=== PATIENT | female | born 1960 | race Caucasian/White ===

== ENCOUNTER → 2019-01-17 | Outpatient (CLI) | payer OTHER ==
[2019-01-17 10:51] LABS: HEMATOCRIT 42.7 % (36.0-47.0); HEMOGLOBIN 14.8 g/dL (12.0-15.5); MEAN CORPUSCULAR HEMOGLOBIN 30.9 pg (27.0-33.4); MEAN CORPUSCULAR HGB CONC 34.6 g/dL (32.0-36.0); MEAN CORPUSCULAR VOLUME 89 fl (80-97); PLATELET COUNT 298 10^3/uL (150-450); RED BLOOD COUNT 4.78 10^6/uL (3.72-5.28); RED CELL DISTRIBUTION WIDTH 12.5 % (11.5-14.0); WHITE BLOOD COUNT 6.9 10^3/uL (4.0-10.5)
== END ==
LOC: OD 09:55
PROVIDERS: ATTEND Nurse Practitioner Acute Care
DX: R53.83 Other fatigue (principal)
CPT/HCPCS: 36415; 82607; 85027

== ENCOUNTER 2020-06-08 08:02 | Emergency (ER) | payer OTHER ==
[2020-06-08] MEDS ORDERED: DIPHENHYDRAMINE HCL 50 MG/ML VIAL ONE (08:08)
[2020-06-08] MEDS ORDERED: FAMOTIDINE INJ/PF 20 MG/2 ML SDV IV ONE ×2 (08:08→08:12)
[2020-06-08] MEDS ORDERED: EPINEPHRINE INJ/PF 1 MG/1 ML AMPULE ONE (08:08)
[2020-06-08] MEDS ORDERED: METHYLPREDNISOLONE INJ 125 MG/2 ML SDV ONE (08:09)
[2020-06-08] MEDS ORDERED: METHYLPREDNISOLONE INJ 125 MG/2 ML SDV IV ONE (08:11)
[2020-06-08] MEDS ORDERED: DIPHENHYDRAMINE HCL 50 MG/ML VIAL IV ONE (08:12)
--- NOTE | 2020-06-08 08:17 | ER Document Report ---
ED General - General Chief Complaint: Swelling of Tongue Stated Complaint: SWOLLEN TOUNGE Time Seen by Provider: 06/08/20 08:05 Primary Care Provider: MARYAM CRUZ NP [ALLIED HEALTH PROFESSIONAL] - Follow up as needed Notes: 59-year-old female presents to the emergency department with a swollen tongue. The patient stated her doctor started her on a new inhaler and a new medicine for diarrhea. This was Tuesday. The patient took the inhaler several times on Tuesday and yesterday but had no issues she took 1 pill of the antidiarrheal medicine and has not had any bowel movement since but this morning her tongue has been swollen. States she could not swallow it first and that she felt as if her tongue was blocking her mouth preventing her from swallowing. She presented here via private vehicle. She denies any chest pain denies shortness of breath. States she could not swallow but it is starting to improve slowly and she is able to swallow she denies any drooling. Denies any shellfish or any atypical diet in the last several days. The only thing new is the medications are prescribed on Tuesday and she took her inhaler Tuesday and Tuesday but only took the antidiarrheal medicine yesterday. She denies any antihypertensive use. No GILBERTO inhibitor's. Denies any insect bites or bee stings. TRAVEL OUTSIDE OF THE [place] IN LAST 30 DAYS: No - Related Data Allergies/Adverse Reactions: No Known Allergies Allergy (Unverified 06/08/20 08:55) Past Medical History - Social History Smoking Status: Unknown if Ever Smoked Family History: Reviewed & Not Pertinent Review of Systems - Review of Systems Constitutional: denies: Chills, Fever EENT: Difficulty swallowing, Throat swelling Cardiovascular: denies: Chest pain, Dyspnea, Edema Respiratory: denies: Cough, Hurts to breathe Gastrointestinal: No symptoms reported Genitourinary: No symptoms reported Female Genitourinary: No symptoms reported Musculoskeletal: No symptoms reported Skin: No symptoms reported Hematologic/Lymphatic: No symptoms reported Neurological/Psychological: No symptoms reported -: Yes All other systems reviewed and negative Physical Exam - Vital signs Vitals: Temp 98.3 F 06/08/20 08:02 - Notes Notes: GENERAL_APPEARANCE: well_nourished, alert, cooperative VITALS: reviewed, see vital signs table. HEAD: no_swelling\tenderness on the head. EYES: PERRL, EOMI, conjunctiva_clear. NOSE: no_nasal_discharge. MOUTH: (-)decreased moisture. Tongue is swollen more so on the left than the right. Am able to see just the top of the uvula. No drooling no stridor noted THROAT: no_tonsilar_inflammation, no_airway_obstruction. no_lymphadenopathy NECK: supple, no_neck_tenderness, (-)thyromegaly. BACK: no_back_tenderness. CHEST_WALL: no_chest_tenderness. LUNGS: no_wheezing, no_rales, no_rhonchi, (-)accessory muscle use, good air exchange bilateral. EXTREMITIES: good pulses in all_extremities, no_swelling\tenderness in the extremities, no_edema. SKIN: warm, dry, good_color, no_rash. MENTAL_STATUS: speech_clear, oriented_X_3, normal_affect, responds_appropriately to questions. Course - Re-evaluation Re-evalutation: 06/08/20 08:15 59-year-old female presents with angioedema. The patient's tongue is swollen. Lips are not swollen. There is no drooling or stridor I am able to see part of the uvula. We will give her the usual antihistamines and steroids. Due to her age at this time I do not think epi is indicated. We are watching her closely if she does not improve or gets worse we will hold subcu epi. Otherwise I think we are doing well and should progress accordingly. 06/08/20 11:27 Tongue is still swollen but looks considerably better. Will place patient on steroids and antihistamines the next couple days. If worse return to the ER otherwise the swelling should continually decrease. Patient is doing well here again on reevaluation I can see more the uvula no drooling no stridor swelling is much improved. Breathing well. 06/08/20 11:29 I advised her to stop the day antidiarrheal medicine she was started on and took yesterday. - Vital Signs Vital signs: Temp Pulse Resp BP Pulse Ox 98.3 F 20 138/69 H 92 06/08/20 08:02 06/08/20 11:01 06/08/20 11:01 06/08/20 11:01 Discharge - Discharge Clinical Impression: Angioedema Qualifiers: Encounter type: initial encounter Qualified Code(s): T78.3XXA - Angioneurotic edema, initial encounter Condition: Good Disposition: HOME, SELF-CARE Instructions: Angioedema ([facility]) Additional Instructions: Stop the antidiarrheal medicine you took yesterday Prescriptions: Methylprednisolone [Medrol 4 Mg Tablet] 4 mg PO DAILY #1 packet Hydroxyzine Pamoate [Vistaril 50 mg Capsule] 50 mg PO DAILY #30 capsule Referrals: MARYAM CRUZ NP [ALLIED HEALTH PROFESSIONAL] - Follow up as needed
[2020-06-08 11:54] VITALS: BP 126/66
== END 2020-06-08 12:02 | disposition home or self-care (01) ==
LOC: ER 08:02
DX: K14.9 Disease of tongue, unspecified (principal); T78.3XXA Angioneurotic edema, initial encounter; X58.XXXA Exposure to other specified factors, initial encounter
CPT/HCPCS: 99284; 96374; 96375; J1200; J2930; S0028

== ENCOUNTER 2020-06-11 07:23 | Emergency (ER) | payer OTHER ==
--- NOTE | 2020-06-11 08:50 | ER Document Report ---
ED GI/ - General Chief Complaint: Constipation Stated Complaint: URINATION PROBLEMS, ABDOMINAL PAIN Time Seen by Provider: 06/11/20 08:22 Mode of Arrival: Ambulatory Information source: Patient Notes: 59-year-old female patient presenting to the emergency department with concern for abdominal pain and lack of energy. Patient reports pain ongoing for about the last week. She reports associated passage of very small soft stools. Patient is concerned she may have constipation or bowel obstruction. Patient denies any history of abdominal surgeries, has never had a bowel obstruction in the past. She does report that she went to [facility] urgent care for her abdominal pain and diarrhea and she reports they diagnosed her with COPD and told her to take Imodium. She states this is the worst pain she has ever felt. She reports associated nausea but denies any vomiting or urinary symptoms. The pain is diffuse, spreads across her entire abdomen and states that significantly worsened this morning. She is passing gas. TRAVEL OUTSIDE OF THE [place] IN LAST 30 DAYS: No - Related Data Allergies/Adverse Reactions: No Known Allergies Allergy (Unverified 06/08/20 08:55) Past Medical History - General Information source: Patient - Social History Smoking Status: Current Every Day Smoker Family History: Reviewed & Not Pertinent - Past Medical History Cardiac Medical History: Reports: Hx Hypertension Psychiatric Medical History: Reports: Hx Depression Surgical Hx: Negative - Immunizations Immunizations up to date: No Review of Systems - Review of Systems Gastrointestinal: Abdominal pain, Nausea -: Yes All other systems reviewed and negative Physical Exam - Vital signs Vitals: Temp Pulse Resp BP Pulse Ox 97.4 F 88 16 142/66 H 95 06/11/20 07:29 06/11/20 07:29 06/11/20 07:29 06/11/20 07:29 06/11/20 07:29 - Notes Notes: PHYSICAL EXAMINATION: GENERAL: Morbidly obese, appears to be in mild to moderate distress. HEAD: Atraumatic, normocephalic. EYES: Pupils equal round and reactive to light, extraocular movements intact, conjunctiva are normal. ENT: Nares patent, oropharynx clear without exudates. Moist mucous membranes. NECK: Normal range of motion, supple without lymphadenopathy LUNGS: Breath sounds clear to auscultation bilaterally and equal. No wheezes rales or rhonchi. HEART: Regular rate and rhythm without murmurs ABDOMEN: Firm, large, round distended abdomen. No guarding, no rebound. No masses appreciated. Female : deferred Musculoskeletal: Normal range of motion, no pitting or edema. No cyanosis. NEUROLOGICAL: Cranial nerves grossly intact. Normal speech, normal gait. Normal sensory, motor exams PSYCH: Normal mood, normal affect. SKIN: Warm, Dry, normal turgor, no rashes or lesions noted. Course - Re-evaluation Re-evalutation: Patient was initially sent for a KUB if she felt that she was constipated. KUB did not appear to show any gross abnormalities by my interpretation and there was a significant delay in getting a radiology report. The radiologist, Dr. Jack tells me there is nothing acute on this KUB. Patient does have a distended abdomen. She now has laboratory investigations that show leukocytosis to 22,900. I will send her for a CT of the abdomen and pelvis with oral and IV contrast 06/11/20 16:50 Spoke with [facility]. Discussed case with Dr. Rosa. He will accept the patient for transfer to their facility for her necrotic liver mass. Patient updated on plan of care. We are currently awaiting bed assignment at [facility]. IV antibiotics ordered. 06/11/20 20:29 Transport crew is at the bedside to transfer patient to [facility]. Patient is stable for transfer at this time. She is a little loopy from the morphine. She is maintaining her own airway and speaking in complete and clear sentences. - Vital Signs Vital signs: Temp Pulse Resp BP Pulse Ox 98.8 F 87 15 126/44 H 96 06/11/20 17:21 06/11/20 17:21 06/11/20 17:21 06/11/20 17:21 06/11/20 17:21 - Laboratory Result Diagrams: 06/11/20 10:52 06/11/20 10:52 Laboratory results interpreted by me: 06/11/20 06/11/20 10:52 10:52 WBC 22.9 H RDW 14.1 H Plt Count 609 H Seg Neuts % (Manual) 82 H Lymphocytes % (Manual) 9 L Abs Neuts (Manual) 18.8 H Creatinine 0.51 L Alkaline Phosphatase 150 H Albumin 3.3 L Discharge - Discharge Clinical Impression: necrotic liver mass Abdominal pain Qualifiers: Abdominal location: unspecified location Qualified Code(s): R10.9 - Unspecified abdominal pain Condition: Fair Disposition: [facility]
[2020-06-11 09:35] LABS: APPEARANCE,URINE SLIGHTLY-CLOUDY; BILIRUBIN,URINE NEGATIVE (NEGATIVE); COLOR,URINE YELLOW; GLUCOSE, URINE NEGATIVE (NEGATIVE); KETONES,URINE NEGATIVE (NEGATIVE); LEUKOCYTE ESTERASE,URINE NEGATIVE (NEGATIVE); NITRITE,URINE NEGATIVE (NEGATIVE); PROTEIN,URINE NEGATIVE (NEGATIVE); URINE SPECIFIC GRAVITY 1.017; UROBILINOGEN,URINE NEGATIVE mg/dL (<2.0)
[2020-06-11] MEDS ORDERED: DICYCLOMINE HCL INJ 20 MG/2 ML AMPULE IM ONE (11:11)
[2020-06-11 11:13] LABS: HEMATOCRIT 37.7 % (36.0-47.0); HEMOGLOBIN 12.7 g/dL (12.0-15.5); MEAN CORPUSCULAR HEMOGLOBIN 28.7 pg (27.0-33.4); MEAN CORPUSCULAR HGB CONC 33.7 g/dL (32.0-36.0); MEAN CORPUSCULAR VOLUME 85 fl (80-97); RED BLOOD COUNT 4.44 10^6/uL (3.72-5.28); RED CELL DISTRIBUTION WIDTH 14.1 % (11.5-14.0); WHITE BLOOD COUNT 22.9 10^3/uL (4.0-10.5)
[2020-06-11 11:36] LABS: ABSOLUTE LYMPHOCYTES# (MANUAL) 2.5 10^3/uL (0.5-4.7); ABSOLUTE MONOCYTES # (MANUAL) 1.1 10^3/uL (0.1-1.4); BASOPHILS % (MANUAL) 0 % (0-2); EOSINOPHILS % (MANUAL) 2 % (0-6); LYMPHOCYTES % (MANUAL) 9 % (13-45); MONOCYTES % (MANUAL) 5 % (3-13); SEGMENTED NEUTROPHILS % (MAN) 82 % (42-78); TOTAL CELLS COUNTED 100
[2020-06-11 11:37] LABS: ANISOCYTOSIS SLIGHT; OVALOCYTES SLIGHT; PLATELET CLUMPS PRESENT; PLATELET COUNT 609 10^3/uL (150-450); POIKILOCYTOSIS SLIGHT; POLYCHROMASIA SLIGHT; TEAR DROP CELLS SLIGHT
[2020-06-11 11:38] LABS: PLATELET COMMENT INCREASED
[2020-06-11 11:40] LABS: ALBUMIN 3.3 g/dL (3.5-5.0); ALKALINE PHOSPHATASE 150 U/L (38-126); ANION GAP 10 (5-19); ASPARTATE AMINO TRANSFERASE 21 U/L (14-36); BILIRUBIN,DIRECT 0.2 mg/dL (0.0-0.4); BILIRUBIN,TOTAL 0.5 mg/dL (0.2-1.3); BLOOD UREA NITROGEN 12 mg/dL (7-20); CARBON DIOXIDE 27 mmol/L (22-30); CHLORIDE 101 mmol/L (98-107); GLUCOSE 90 mg/dL (75-110); POTASSIUM 4.2 mmol/L (3.6-5.0); TOTAL PROTEIN 6.4 g/dL (6.3-8.2)
--- NOTE | 2020-06-11 14:24 | RADIOLOGY REPORT (SQ) ---
EXAM DESCRIPTION: KUB/ABDOMEN (SINGLE VIEW) IMAGES COMPLETED DATE/TIME: 06/11/2020 9:21 am REASON FOR STUDY: abd pain COMPARISON: None. NUMBER OF VIEWS: One view. TECHNIQUE: Supine radiographic image of the abdomen acquired. LIMITATIONS: None. FINDINGS: BOWEL GAS PATTERN: Normal bowel gas pattern. No dilated loops. CALCIFICATIONS: Multiple calcific densities overlying the left mid abdomen probably renal stones alth ough this could represent soft tissue calcification. SOFT TISSUES: No gross mass or suggestion of organomegaly. HARDWARE: None in the abdomen. BONES: No acute fracture. No worrisome bone lesions. OTHER: No other significant finding. IMPRESSION: Probable left renal stones. Gas pattern is nonspecific. TECHNICAL DOCUMENTATION: JOB ID: [id number] 2010 [employer]- All Rights Reserved Reading location - IP/workstation name: [email or web address]
--- NOTE | 2020-06-11 15:54 | RADIOLOGY REPORT (SQ) ---
EXAM DESCRIPTION: CT ABD/PELVIS WITH IV ORAL IMAGES COMPLETED DATE/TIME: 06/11/2020 2:59 pm REASON FOR STUDY: abd pain, leukocytosis COMPARISON: None. TECHNIQUE: CT scan of the abdomen and pelvis performed with intravenous and oral contrast using paty kenneth scanning technique with dynamic intravenous contrast injection. Images reviewed with lung, soft t issue, and bone windows. Reconstructed coronal and sagittal MPR images reviewed. Delayed images for e valuation of the urinary system also acquired. All images stored on PACS. All CT scanners at this facility use dose modulation, iterative reconstruction, and/or weight based d osing when appropriate to reduce radiation dose to as low as reasonably achievable (ALARA). [facility]: Dose Right [facility]: CareDose [facility]: Dose Right [facility]: Teradose 4D [facility]: Stellarcasa SA CONTRAST TYPE AND DOSE: contrast/concentration: Isovue 350.00 mmol/ml; Total Contrast Delivered: 96. 0 ml; Total Saline Delivered: 43.2 ml RENAL FUNCTION: GFR > 60. RADIATION DOSE: CT Rad equipment meets quality standard of care and radiation dose reduction techniq ues were employed. CTDIvol: 15.1 - 19.1 mGy. DLP: 1826 mGy-cm. . LIMITATIONS: None. FINDINGS: LOWER CHEST: No significant findings. No nodules or infiltrates. LIVER: Large heterogeneous mass in the right lobe extending into the medial segment of the left lobe measures approximately 30 HU. There is inflammatory change in the adjacent fat. There is a similar appearing mass occupying the caudate lobe. No dilated ducts. SPLEEN: No dilated ducts. PANCREAS: No masses. No significant calcifications. No adjacent inflammation or peripancreatic fluid collections. Pancreatic duct not dilated. GALLBLADDER: No identified stones by CT criteria. No inflammatory changes to suggest cholecystitis. ADRENAL GLANDS: No significant masses or asymmetry. RIGHT KIDNEY AND URETER: Parapelvic cysts. No solid mass. Several renal calculi measuring up to 12 mm. No hydronephrosis or hydroureter. LEFT KIDNEY AND URETER: No solid masses. No significant calcifications. No hydronephrosis or hydr oureter. AORTA AND VESSELS: No aneurysm. No dissection. Renal arteries, SMA, celiac without stenosis. RETROPERITONEUM: 1.8 x 6.0 by 5.0 cm AP by transverse by craniocaudal diameter aortocaval node just i nferior to the gallbladder fossa. BOWEL AND PERITONEAL CAVITY: Diverticulosis. No inflammatory changes associated with colon. APPENDIX: Normal. PELVIS: No significant masses. Normal bladder. No free fluid. ABDOMINAL WALL: No masses. No hernias. BONES: No significant or acute findings. OTHER: No other significant finding. IMPRESSION: Necrotic liver mass worrisome for primary or metastatic carcinoma. Retroperitoneal rosa opathy. COMMENT: Amenable to CT-guided biopsy. TECHNICAL DOCUMENTATION: JOB ID: [id number] Quality ID # [id number]: Final reports with documentation of one or more dose reduction techniques (e.g., Au tomated exposure control, adjustment of the mA and/or kV according to patient size, use of iterative reconstruction technique) 2010 [employer]- All Rights Reserved Reading location - IP/workstation name: [email or web address]
[2020-06-11] MEDS ORDERED: MORPHINE SULFATE 10 MG/ML INJ IV ONE (17:42)
[2020-06-11] MEDS ORDERED: CIPROFLOXACIN 400 MG/D5W RTU 400 MG/200 ML RTUPB IV ONE (17:42)
[2020-06-11] MEDS ORDERED: METRONIDAZOLE 500 MG/NS RTU 500 MG/100 ML RTUPB IV ONE (17:42)
[2020-06-11 20:36] VITALS: BP 130/54
== END 2020-06-11 20:38 | disposition short-term general hospital (02) ==
LOC: ER 07:23
DX: R16.0 Hepatomegaly, not elsewhere classified (principal); D72.829 Elevated white blood cell count, unspecified; R10.84 Generalized abdominal pain; R11.0 Nausea; E66.01 Morbid (severe) obesity due to excess calories; I10 Essential (primary) hypertension
CPT/HCPCS: 99285; 96372; 96375; 96365; 96366; 96368; 36415; 87040; 83605; 83690; 85025; 80053; 81001; 74018; 74177; J0500; J3490; J2270; J0744